=== PATIENT | female | born 1990 | race Caucasian/White ===

== ENCOUNTER 2018-01-22 05:46 | Emergency (ER) | payer OTHER ==
[~2018-01-22] VITALS: Ht 162.6 cm; Wt 63.5 kg
[~2018-01-22 05:46] MED LIST: NORG1TAB6 PO; TRAM50TA PO
[2018-01-22 05:55] VITALS: BP 119/66
[2018-01-22] MEDS ORDERED: IBUP800T19 PO (06:52)
[2018-01-22] MEDS ORDERED: LEVO500T59 PO (06:52)
[2018-01-22] MEDS ORDERED: HYDR-971 PO (06:52)
[2018-01-22] MEDS ORDERED: SULF1TAB24 PO (06:52)
[2018-01-22] MEDS ORDERED: DIPHTH,PERTUSS(ACELL),TET TOX 0.5 ML DISP.SYRIN. VAX IM ONE (07:00)
--- NOTE | 2018-01-22 07:13 | ED.ADGEN ---
Past History Past Medical History: Cancer Past Surgical History: Appendectomy, Cancer Surgery Alcohol Use: Rarely Drug Use: None Adult General HPI HPI Patient is a 27 year old female who presents with dog bite to the left hand. Incident happened this am by the patient's own dog. Dog's immunizations are up to date including rabies. Patient's last tetanus was over 5 years ago. c/o pain and swelling to the left index finger. Review of Systems Review of Systems Constitutional: Denies fever Musculoskeletal: as documented above Integument: Denies rash Neurologic: Denies headache All other systems were reviewed and found to be within normal limits, except as documented in this note. Current Medications Current Medications Current Medications Medications (Trade) Dose Ordered Sig/Lakisha Start Time Stop Time Status Last Admin Dose Admin Diphtheria/ Tetanus/Acell Pertussis (Boostrix) 0.5 ml ONCE ONCE 01/22/18 07:00 01/22/18 07:02 DC 01/22/18 06:34 0.5 ML Allergies Allergies Allergies Coded Allergies Type Severity Reaction Last Updated Verified Penicillins Allergy Intermediate hives 12/05/14 Yes Physical Exam Physical Exam Constitutional: Well developed, well nourished, no acute distress, non-toxic appearance HENT: Normocephalic, atraumatic, bilateral external ears normal, oropharynx moist Eyes: PERRLA, EOMI, conjunctiva normal Neck: Normal range of motion Skin: Warm, dry, no erythema Back: Normal ROM Extremities: swelling over left index finger soft tissue. puncture wounds present over volar and dorsal aspect. cap refill < 2 seconds. Sensation to light touch intact. flexor/extensor mechanisms intact although painful 2/2 swelling. Neurologic: Alert and oriented X 3 Psychologic: Affect normal Current Patient Data Vital Signs Vital Signs Date Time Temp Pulse Resp B/P (MAP) Pulse Ox O2 Delivery O2 Flow Rate FiO2 01/22/18 05:55 98.2 94 18 99 Room Air EKG EKG [] Radiology/Procedures Radiology/Procedures Fx of middle phalanx Course & Med Decision Making Course & Med Decision Making Pertinent Labs and Imaging studies reviewed. (See chart for details) Patient seen and examined in the ER for dog bite. Xray revealing for Fx of middle phalanx. Allergic to PCN. Started on bactrim. Splint placed. F/u with Dr. Hopkins. Ibuprofen Wayne Bactrim. Pain medications precautions provided. Final Impression Final Impression Dog bite left hand Fx middle phalanx left index finger Dragmisael Disclaimer Dragon Disclaimer This electronic medical record was generated, in whole or in part, using a voice recognition dictation system. REBECCA DAVIDSON DO Jan 22, 2018 07:12
--- NOTE | 2018-01-22 07:38 | RAD ---
Left hand, 3 views, 01/22/2018: HISTORY: Dog bite There is a nondisplaced fracture of the proximal end of the middle phalanx of the index finger. The fracture line extends into the PIP joint. No other fracture or dislocation is identified. There is moderate soft tissue swelling about the index finger. IMPRESSION: Nondisplaced fracture of the middle phalanx of the left index finger. Electronically signed by: Justino Taylor MD (01/22/2018 7:34 AM) [facility]
== END 2018-01-22 07:00 | disposition home or self-care (01) ==
LOC: ER 05:46
DX: S62.621A Displaced fracture of middle phalanx of left index finger, initial encounter for closed fracture (principal); S61.251A Open bite of left index finger without damage to nail, initial encounter; Z88.0 Allergy status to penicillin; W54.0XXA Bitten by dog, initial encounter; Y93.89 Activity, other specified; Y92.89 Other specified places as the place of occurrence of the external cause; Y99.8 Other external cause status
CPT/HCPCS: 29130; 73130; 90471; 90715; 99284-25

== ENCOUNTER 2021-06-17 18:00 | Emergency (ER) | payer OTHER ==
[~2021-06-17] VITALS: Ht 162.6 cm; Wt 63.6 kg
[~2021-06-17 18:00] MED LIST changes: +HYDR-3165 PO; +IBUP800T19 PO; +LEVO500T59 PO; +SULF1TAB24 PO
--- NOTE | 2021-06-17 20:00 | RAD ---
XR CHEST 2V History: Reason: chest tightness / Spl. Instructions: / History: Comparison: None. Findings: The cardiomediastinal silhouette is normal. Pulmonary vasculature is normal. The lungs are clear. No pleural effusion or pneumothorax is seen. There is no acute bone abnormality. IMPRESSION: No acute cardiopulmonary process. Electronically signed by: Robbie Elmore MD (06/17/2021 7:57 PM) [facility] HOSPITALAshleigh
--- NOTE | 2021-06-17 20:12 | PHYS DOC ---
Past History Past Medical History: Cancer Past Surgical History: Appendectomy, Cancer Surgery Alcohol Use: None Drug Use: None General Adult EDM: Chief Complaint: CONGESTION HPI: HPI: Patient is a 31-year-old female that presents today with chest tightness for 48 hours. Patient states that she was in [place] all last week returned yesterday she said since that time she has had increased chest chest tightness when she takes a deep breath. Patient states that she also had some high-altitude sickness while in [place] and received no treatment. Patient does states that she has been using a coolmist humidifier due to the dryness in the air in [place], but she feels that is not helping. Patient denies fever, chills, shortness of air, and chest pain. Patient did have a rapid COVID-19 test today which was negative. Review of Systems: Review of Systems: Constitutional: Denies fever or chills Eyes: Denies change in visual acuity HENT: Denies nasal congestion or sore throat Respiratory: Denies cough or shortness of breath Cardiovascular: Chest tightness GI: Denies abdominal pain, nausea, vomiting, bloody stools or diarrhea : Denies dysuria Musculoskeletal: Denies back pain or joint pain Integument: Denies rash Neurologic: Denies headache, focal weakness or sensory changes Endocrine: Denies polyuria or polydipsia Lymphatic: Denies swollen glands Psychiatric: Denies depression or anxiety Allergies: Allergies: Allergies Coded Allergies Type Severity Reaction Last Updated Verified Penicillins Allergy Intermediate hives 12/05/14 Yes Physical Exam: PE: Constitutional: Well developed, well nourished, no acute distress, non-toxic appearance. [] HENT: Normocephalic, atraumatic, bilateral external ears normal, oropharynx moist, no oral exudates, nose normal. [] Eyes: PERRLA, EOMI, conjunctiva normal, no discharge. [] Neck: Normal range of motion, no tenderness, supple, no stridor. [] Cardiovascular:Heart rate regular rhythm, no murmur [] Lungs & Thorax: Bilateral breath sounds clear to auscultation [] Abdomen: Bowel sounds normal, soft, no tenderness, no masses, no pulsatile masses. [] Skin: Warm, dry, no erythema, no rash. [] Back: No tenderness, no CVA tenderness. [] Extremities: No tenderness, no cyanosis, no clubbing, ROM intact, no edema. [] Neurologic: Alert and oriented X 3, normal motor function, normal sensory function, no focal deficits noted. [] Psychologic: Affect normal, judgement normal, mood normal. [] Current Patient Data: Vital Signs: Vital Signs Date Time Temp Pulse Resp B/P (MAP) Pulse Ox O2 Delivery O2 Flow Rate FiO2 06/17/21 18:23 98.0 94 16 110/79 (89) 94 Room Air EKG: EKG: [] Radiology/Procedures: Radiology/Procedures: REASON: chest tightness PROCEDURE: CHEST PA & LATERAL XR CHEST 2V History: Reason: chest tightness / Spl. Instructions: / History: Comparison: None. Findings: The cardiomediastinal silhouette is normal. Pulmonary vasculature is normal. The lungs are clear. No pleural effusion or pneumothorax is seen. There is no acute bone abnormality. IMPRESSION: No acute cardiopulmonary process. Electronically signed by: Robbie Elmore MD (06/17/2021 7:57 PM) [facility] Heart Score: C/O Chest Pain: N/A Risk Factors: Risk Factors: DM, Current or recent (<one month) smoker, HTN, HLP, family history of CAD, obesity. Risk Scores: Score 0 - 3: 2.5% MACE over next 6 weeks - Discharge Home Score 4 - 6: 20.3% MACE over next 6 weeks - Admit for Clinical Observation Score 7 - 10: 72.7% MACE over next 6 weeks - Early Invasive Strategies Course & Med Decision Making: Course & Med Decision Making Pertinent Labs and Imaging studies reviewed. (See chart for details) Reviewed x-ray with patient will order a albuterol inhaler for the patient so that she may help with the chest tightness did inform patient if she should start running a fever, having increased shortness of breath, or chest pain she should follow-up with her primary care or return here to the emergency department. Patient did agree to the plan of care and understands discharge instructions Suzanna Disclaimer: Suzanna Disclaimer: This electronic medical record was generated, in whole or in part, using a voice recognition dictation system. Departure Departure: Impression: Primary Impression: Feeling of chest tightness Disposition: HOME / SELF CARE / HOMELESS Condition: STABLE Referrals: TANIKA TAPIA MD (PCP) Patient Instructions: Chest Pain (Nonspecific) Additional Instructions: Albuterol inhaler take 2 puufs every 4 hours as needed for chest tightness Return to the ED for increase chest tightness not relieved with inhaler, increase shortness of breath, fever or any other concerns you may have. Follow up with PCP in 5-7 days if no better. Scripts Albuterol Sulfate (PROAIR HFA INHALER) 8.5 Gm Hfa.aer.ad 2 PUFF IH PRN Q4-6HRS PRN for wheezing, #1 INHALER 0 Refills Prov: GEO LOO WARP CLAMPER 06/17/21 GEO LOO WARP CLAMPER Jun 17, 2021 20:12
[2021-06-17] MEDS ORDERED: ALBU2.5V8 IH (20:36)
[2021-06-17 20:47] VITALS: BP 103/77
== END 2021-06-17 20:50 | disposition home or self-care (01) ==
LOC: ER 18:00
DX: R07.89 Other chest pain (principal); Z88.0 Allergy status to penicillin
CPT/HCPCS: 71046; 99283

== ENCOUNTER 2021-06-18 10:43 | Emergency (ER) | payer OTHER ==
[~2021-06-18] VITALS: Ht 162.6 cm; Wt 63.6 kg
[~2021-06-18 10:43] MED LIST changes: +ALBU2.5V8 IH
[2021-06-18 10:50] VITALS: BP 128/85
[2021-06-18] MEDS ORDERED: IV NORMAL SALINE 1,000ML 1,000 ML IV ONE (11:15)
[2021-06-18 11:26] LABS: BASO % 0 % (0-3); EOS % 0 % (0-3); HEMATOCRIT 39.5 % (36.0-47.0); HEMOGLOBIN 13.4 g/dL (12.0-15.5); LYMPH # 1.2 x10^3/uL (1.0-4.8); LYMPH % 15 % (24-48); MEAN CORPUSCULAR HEMOGLOBIN 31 pg (25-35); MEAN CORPUSCULAR HGB CONC 34 g/dL (31-37); MEAN CORPUSCULAR VOLUME 90 fL (79-100); MONO # 1.2 x10^3/uL (0.0-1.1); MONO % 15 % (0-9); NEUT # 5.5 x10^3uL (1.8-7.7); NEUT % 70 % (31-73); PLATELET COUNT 209 x10^3/uL (140-400); RED CELL DISTRIBUTION WIDTH 13.5 % (11.5-14.5); WHITE BLOOD COUNT 7.9 x10^3/uL (4.0-11.0)
--- NOTE | 2021-06-18 11:32 | PHYS DOC ---
Past History Past Medical History: Cancer Additional Past Medical Histor: Non Hodgkins lymphoma Past Surgical History: Appendectomy, Cancer Surgery Alcohol Use: None Drug Use: None General Adult EDM: Chief Complaint: CHEST PAIN HPI: HPI: 31-year-old female presents with chest pain. She was sitting at work today when she felt like her heart rate started racing. She believes it went up into at least the 140s. She also had a central chest tightness. She denies shortness of breath. She admits that the feelings she had made her feel anxious and she was breathing more rapidly. Her heart rate seems to be going up and down. She has had an arrhythmia in the past that was related to her thyroid while she was . She has not had trouble for quite some time. She does see a certified adapted physical educator annually because she has a non-Hodgkin's lymphoma cancer survivor. Her last echo was reportedly normal. Patient was tested for COVID-19 yesterday and it was negative. She did recently return from a trip to [place] with long travel times. No history of DVT or PE. She denies fever or chills. Review of Systems: Review of Systems: Constitutional: Denies fever or chills Eyes: Denies change in visual acuity HENT: Denies nasal congestion or sore throat Respiratory: Denies cough or shortness of breath Cardiovascular: Chest pain, tachycardia GI: Denies abdominal pain, nausea, vomiting, bloody stools or diarrhea : Denies dysuria Musculoskeletal: Denies back pain or joint pain Integument: Denies rash Neurologic: Denies headache, focal weakness or sensory changes Endocrine: Denies polyuria or polydipsia Lymphatic: Denies swollen glands Psychiatric: anxiety Current Medications: Current Meds: Current Medications Medications (Trade) Dose Ordered Sig/Lakisha Start Time Stop Time Status Last Admin Dose Admin Sodium Chloride 1,000 ml @ 1,000 mls/hr 1X ONCE 06/18/21 11:15 06/18/21 12:14 Allergies: Allergies: Allergies Coded Allergies Type Severity Reaction Last Updated Verified Penicillins Allergy Intermediate hives 12/05/14 Yes Physical Exam: PE: Constitutional: Well developed, well nourished, no acute distress, non-toxic appearance. [] HENT: Normocephalic, atraumatic, bilateral external ears normal, oropharynx moist, no oral exudates, nose normal. [] Eyes: PERRLA, EOMI, conjunctiva normal, no discharge. [] Neck: Normal range of motion, no tenderness, supple, no stridor. [] Cardiovascular: Heart rate 119, regular rhythm, no murmur [] Lungs & Thorax: Bilateral breath sounds clear to auscultation [] Abdomen: Bowel sounds normal, soft, no tenderness, no masses, no pulsatile masses. [] Skin: Warm, dry, no erythema, no rash. [] Back: No tenderness, no CVA tenderness. [] Extremities: No tenderness, no cyanosis, no clubbing, ROM intact, no edema. [] Neurologic: Alert and oriented X 3, normal motor function, normal sensory function, no focal deficits noted. [] Psychologic: Affect normal, judgement normal, mood anxious. [] Current Patient Data: Vital Signs: Vital Signs Date Time Temp Pulse Resp B/P (MAP) Pulse Ox O2 Delivery O2 Flow Rate FiO2 06/18/21 10:50 98.2 127 33 128/85 (99) 100 EKG: EKG: [] Radiology/Procedures: Radiology/Procedures: [] Impressions: INDICATION: Reason: CP / Spl. Instructions: / History: COMPARISON: One day prior FINDINGS: Single view of chest obtained. No focal airspace consolidation. Cardiomediastinal contour unremarkable. No acute osseous abnormality. IMPRESSION: * No focal airspace consolidation or edema. Electronically signed by: Elsa Rhoades MD (06/18/2021 12:03 PM) [id number] DICTATED AND SIGNED BY: ELSA RHOADES MD DATE: 06/18/21 1202 CC: LIBBY MONK DO; TANIKA TAPIA MD ~MTH0 0 Heart Score: C/O Chest Pain: Yes HEART Score for Chest Pain: HEART Score for Chest Pain Response (Comments) Value History Slighlty/Non-Suspicious 0 ECG Nonspecific Repolarizatio 1 Age < 45 0 Risk Factors No Risk Factors 0 Troponin < Normal Limit 0 Total 1 Risk Factors: Risk Factors: DM, Current or recent (<one month) smoker, HTN, HLP, family history of CAD, obesity. Risk Scores: Score 0 - 3: 2.5% MACE over next 6 weeks - Discharge Home Score 4 - 6: 20.3% MACE over next 6 weeks - Admit for Clinical Observation Score 7 - 10: 72.7% MACE over next 6 weeks - Early Invasive Strategies Course & Med Decision Making: Course & Med Decision Making Pertinent Labs and Imaging studies reviewed. (See chart for details) The patient's EKG shows sinus tachycardia. Troponin is negative. Chest x-ray is unremarkable. D-dimer is normal. Patient's potassium is 2.8. I will give her 40 mEq p.o. the rest the patient's work-up is unremarkable. She has had thyroid dysfunction in the past. This could be what is happening. I am unable to get a TSH in the ED. I advised that she follow-up with her primary care physician to make sure her potassium improves and to consider further evaluation. I do not see anything life-threatening at this time. She is stable for discharge. [] Suzanna Disclaimer: Suzanna Disclaimer: This electronic medical record was generated, in whole or in part, using a voice recognition dictation system. Departure Departure: Impression: Primary Impression: Chest pain Qualified Codes: R07.9 - Chest pain, unspecified Additional Impression: Hypokalemia Disposition: HOME / SELF CARE / HOMELESS Condition: STABLE Referrals: TANIKA TAPIA MD (PCP) Patient Instructions: Chest Pain (Nonspecific), [id number], Hypokalemia LIBBY MONK DO Jun 18, 2021 11:32
[2021-06-18 11:45] LABS: ALBUMIN 4.1 g/dL (3.4-5.0); ALBUMIN/GLOBULIN RATIO 1.4 (1.0-1.7); CALCIUM 8.6 mg/dL (8.5-10.1); CREATININE 0.7 mg/dL (0.6-1.0); GFR 98.9; TOTAL BILIRUBIN 0.3 mg/dL (0.2-1.0); TOTAL PROTEIN 7.1 g/dL (6.4-8.2)
--- NOTE | 2021-06-18 12:04 | EKG ---
[address] [address] Test Date: 2021-06-18 Test Time: 10:50:41 Pat Name: KENJI SINGH Department: Room: Gender: F Milk Receiver: KENYATTA : 1990 Requested By: LIBBY MONK Order Number: [id number] Reading MD: Stephan Hernandez Measurements Intervals Clarence Rate: 119 P: 14 NE: 134 QRS: 24 QRSD: 68 T: -3 QT: 306 QTc: 437 Interpretive Statements SINUS TACHYCARDIA Electronically Signed On 06-19-2021 7:57:28 [employer] by Stephan Hernandez
--- NOTE | 2021-06-18 12:06 | RAD ---
INDICATION: Reason: CP / Spl. Instructions: / History: COMPARISON: One day prior FINDINGS: Single view of chest obtained. No focal airspace consolidation. Cardiomediastinal contour unremarkable. No acute osseous abnormality. IMPRESSION: * No focal airspace consolidation or edema. Electronically signed by: Eduardo Rhoades MD (06/18/2021 12:03 PM) [id number]
[2021-06-18 12:14] LABS: POTASSIUM 2.8 mmol/L (3.5-5.1)
[2021-06-18] MEDS ORDERED: POTASSIUM CHLORIDE 20 MEQ TABLET.ER. PO ONE (12:30)
[2021-06-18 13:06] LABS: BACTERIA,URINE MOD /HPF (0-FEW); BILIRUBIN,URINE NEG (NEG); CLARITY,URINE CLEAR; COLOR,URINE STRAW; GLUCOSE,URINE NEG (NEG); NITRITE,URINE NEG (NEG); RBC,URINE OCC /HPF (0-2); SQUAMOUS EPITHELIAL CELL,UR MOD /LPF; UROBILINOGEN,URINE 0.2 mg/dL (0.2 mg/dL)
== END 2021-06-18 14:15 | disposition home or self-care (01) ==
LOC: ER 10:43
DX: U07.1 COVID-19 (principal); E87.6 Hypokalemia; R07.89 Other chest pain; Z88.0 Allergy status to penicillin
CPT/HCPCS: 36415; 71045; 80053; 81001; 81025; 84443; 84484; 85025; 85379; 87086; 93005; 96360; 99285; C9803; J7030; U0003